=== PATIENT | female | born 1980 | race Two or more races ===

== ENCOUNTER 2025-01-08 06:00 | Day surgery (SDC) | payer OTHER ==
[2024-12-31 12:25] VITALS: BP 131/85
[~2025-01-08] VITALS: Ht 175.3 cm; Wt 78.9 kg
[2025-01-08] MEDS ORDERED: CEFOXITIN SODIUM 2,000 MG VIAL IV ONE (06:04)
[2025-01-08] MEDS ORDERED: POVIDONE-IODINE 118 ML BOTT TOP ONE (07:05)
[2025-01-08] MEDS ORDERED: MORPHINE SULFATE 4 MG/ML VIAL IV PRN (08:15)
[2025-01-08] MEDS ORDERED: PROMETHAZINE HCL 50 MG/ML AMPUL IM ONE ×2 (08:15→09:37)
[2025-01-08] MEDS ORDERED: AVIDOXY100 MG PO (08:18)
[2025-01-08] MEDS ORDERED: NAPR500T14 PO (08:18)
[2025-01-08] MEDS ORDERED: ONDANSETRON HCL 2 MG/ML VIAL ONE (11:10)
== END 2025-01-08 13:30 | disposition home or self-care (01) ==
LOC: CIR.AMB 06:00
PROVIDERS: ATTEND Obstetrics & Gynecology
DX: D25.0 Submucous leiomyoma of uterus (principal); N84.0 Polyp of corpus uteri; N92.0 Excessive and frequent menstruation with regular cycle